=== PATIENT | male | born 1995 | race Caucasian/White ===

== ENCOUNTER 2016-09-15 19:44 | Inpatient (IN) ==
[2016-09-15] MEDS ORDERED: ONDANSETRON 4 MG/2 ML VIAL IV STA (20:30)
[2016-09-15] MEDS ORDERED: MORPHINE 2 MG/1 ML SYRINGE IV STA (20:30)
[2016-09-15] MEDS ORDERED: ONDANSETRON 4 MG/2 ML VIAL ONE (20:30)
[2016-09-15] MEDS ORDERED: MORPHINE 2 MG/1 ML SYRINGE ONE (20:31)
[2016-09-15] MEDS ORDERED: SODIUM CHLORIDE 0.9% 1,000 ML IV STA ×2 (20:40→21:42)
[2016-09-15] MEDS ORDERED: KETOROLAC 30 MG/1 ML VIAL IV STA (20:45)
[2016-09-15] MEDS ORDERED: KETOROLAC 30 MG/1 ML VIAL ONE (20:45)
--- NOTE | 2016-09-15 20:59 | Emergency Department Note ---
IChepe Sierra, am scribing for, and in the presence of, Christiano Vera MD 20: 56. IChuy Andrew, MD, personally performed the services described in this documentation, ascribed by Frances Mo in my presence, and it is both accurate and complete . Arrival - Arrival Chief Complaint: Abdominal / Flank Pain Stated Complaint: chest pain ED Nursing Triage Note: Pt to triage with complaint of abd pain and epigastric pain. States that the pain is worse when takes a deep breath. States that the pain began in the upper abd and that it seems to radiate to his neck. Last normal bm was this morning. Denies any urinary s/s. Denies fever. States that symptoms started this morning. Pt took otc medication with no releif. Mode of Arrival: Wheelchair Limitations: No Limitations Source: Patient, Family - History of Present Illness HPI Narrative: Pt is a 20 y/o male that came to the ED with c/o intermediate abdominal and epigastric pain that began this morning. Father reports pt appeared to be pale and had a syncopal episode CAR SALES REPRESENTATIVE. Parents states pt does have a Hx of syncopal episodes to blood and pain. Pt states he woke up this morning with a "bad LIZ." Pt reports sxs are worse when lying down and pain radiates to his neck. Father states pt has had vomiting once. Pt denies any other medical problems. No other complaints/pain in ED. Onset (ago): hour(s) Consistency: intermittent Severity: moderate Severity scale (1-10): 5 Quality: sharp Allergies/Adverse Reactions: Allergies Allergy/AdvReac Type Severity Reaction Status Date / Time No Known Allergies Allergy Verified 09/15/16 19:45 Home Medications: Home Medications Medication Instructions Recorded Confirmed Type No Known Home Medications [No 09/15/16 09/15/16 History Known Home Medications] Review of System - Review of System 12 point system: reviewed and no additional remarkable complaints except as stated - Review of System Constitutional: Absent: chills, fever Respiratory: Absent: cough Cardiovascular: Present: syncope. Absent: chest pain Gastrointestinal: Present: abdominal pain, vomiting, other (epigastric pain) Musculoskeletal: Absent: arm pain, back pain, leg pain, neck pain Skin: Absent: rash Neurological: Present: headache Psychiatric: Absent: anxiety Medical,Surgical,& Family Hx - Social History Smoking Status: Never smoker Frequency of Alcohol Use: None Type of Drug Use: None Exam Vital Signs: Vital Signs Temperature 98.7 F 09/15/16 23:56 Pulse Rate 87 09/15/16 23:56 Respiratory Rate 18 09/15/16 23:56 Blood Pressure 99/38 09/15/16 23:56 O2 Sat by Pulse Oximetry 99 09/15/16 23:56 - General Exam limited due to: other (exam is limited due to guarding) General appearance: alert, in distress (in distress due to secondary pain) - Head Head exam: Present: atraumatic, normocephalic - Eye Eye exam: Present: PERRL, EOMI - ENT ENT exam: Present: mucous membranes moist. Absent: mucous membranes dry - Neck Neck exam: Present: full ROM. Absent: tenderness - Chest Chest inspection: Present: symmetric chest wall rise. Absent: tenderness - Respiratory Respiratory exam: Present: normal lung sounds bilaterally. Absent: respiratory distress - Cardiovascular Cardiovascular exam: Present: regular rate, normal rhythm, normal heart sounds - Abdominal Exam Abdominal exam: Present: soft, tenderness, guarding (significant guarding) - Extremities Exam Extremities exam: Present: full ROM. Absent: tenderness - Back Exam Back exam: Present: full ROM - Neurological Exam Neurological exam: Present: alert, oriented X3, CN II-XII intact. Absent: motor sensory deficit - Psychiatric Psychiatric exam: Present: normal affect, normal mood - Skin Skin exam: Present: warm, dry Course Course Narrative: Pain medication given as needed. Bolus 2L NS given. CT abdomen with evidence of free fluid of uncertain etiology. Discussed with Dr. Antonio and pt given Zosyn. Lactate 2.6. Admitted with plan for exploratory laparotomy. Results - Labs CBC & BMP: 09/15/16 20:30 09/15/16 20:30 Lab Results: I have reviewed the patients labs Labs: Laboratory Tests 09/15/16 20:30 WBC 24.4 H MCV 86.6 L Neut % (Auto) 88.0 H Lymph % (Auto) 6.4 L Neut # (Auto) 21.5 H [place] # (Auto) 1.2 H Laboratory Tests 09/15/16 09/15/16 20:30 20:30 Segmented Neutrophils 89 H Lymphocytes 6 L Glucose 139 H Total Bilirubin 1.20 H Laboratory Tests 09/15/16 22:00 Blood Type O NEGATIVE Antibody Screen Negative Disposition Clinical Impression: Acute abdomen, Free fluid in pelvis Case discussed with: patient, patient's family Disposition: Still a Patient Condition: Guarded
[2016-09-15 21:09] LABS: Basophils % 0.2 % (0.0-0.8); Hematocrit 42.6 VOL% (42.0-52.0); Hemoglobin 15.1 GM/DL (14.0-18.0); Immature Granulocytes % 0.7 %; Immature Granulocytes Absolute 0.18 #; Lymphocytes # 1.6 10*3/uL (1.4-4.0); Lymphocytes % 6.4 % (21.2-54.2); Mean Corpuscular HGB Conc 35.4 GM/DL (32-36); Mean Corpuscular Hemoglobin 31 PG (27-34); Mean Corpuscular Volume 86.6 FL (87-102); Mean Platelet Volume 11.4 FL (9.6-12.0); Monocytes # 1.2 10*3/uL (0.11-0.8); Monocytes % 4.7 % (1.7-12.7); Neutrophils # 21.5 10*3/uL (1.4-7.4); Platelet Count 328 T/CUMM (130-400); Red Blood Count 4.92 MC/CUMM (3.8-5.5); Red Cell Distribution Width 12.4 % (9.3-17.3); White Blood Count 24.4 T/CUMM (4-12)
[2016-09-15 21:20] LABS: Albumin 4.5 G/DL (3.4-5.0); Bilirubin,Total 1.2 MG/DL (0.2-1.0); Calcium 9.2 MG/DL (8.5-10.1); Osmolality,Calculated 276.5 MOS/KG (273-304); Potassium 3.9 MMOL/L (3.5-5.1); Total Protein 7.8 G/DL (6.4-8.3)
[2016-09-15 21:32] LABS: Lymphocytes 6 % (20-55); Platelet Estimate Normal; Segmented Neutrophils 89 % (50-85); Total Cells Counted 100
[2016-09-15] MEDS ORDERED: PIPERACILLIN/TAZOBACTAM 3,375 MG in SODIUM CHLORIDE 0.9% 100 ML IV STA (21:39)
[2016-09-15] MEDS ORDERED: PIPERACILLIN/TAZOBACTAM 3,375 MG VIAL IV ONE (21:50)
[2016-09-15] MEDS ORDERED: fentaNYL 100 MCG/2 ML VIAL ONE (22:35)
[2016-09-15] MEDS ORDERED: fentaNYL 100 MCG/2 ML VIAL IV STA ×2 (22:37→23:39)
[2016-09-16] MEDS ORDERED: LORazepam 2 MG/1 ML VIAL IV STA (00:10)
[2016-09-16] MEDS ORDERED: ONDANSETRON 4 MG/2 ML VIAL IV STA (00:10)
[2016-09-16] MEDS ORDERED: ONDANSETRON 4 MG/2 ML VIAL ONE ×2 (00:11→01:00)
[2016-09-16] MEDS ORDERED: LORazepam 2 MG/1 ML VIAL ONE (00:12)
--- NOTE | 2016-09-16 00:24 | General Surg History&Physical ---
Assessment and Plan - Time spent with patient Time spent with patient: Greater than 30 minutes (1) Acute abdomen Status: Acute Assessment and plan: Impression: Acute abdomen, sepsis Plan: I reviewed the lab work and the CT scan which was performed with him on his left side. CT report by virtual radiology reviewed. He has an abnormal collection near the lesser sac as well as some free fluid. His problem could be any of a number of things but the acute onset would be typical with a posterior gastric ulcer perforation or perforation of a tumor or fluid collection causing the acute pain. He has been given antibiotics. I discussed the situation with the patient and his mother and father who are with him. I recommended proceeding with emergent laparotomy. I discussed some of the possibilities that could be encountered. We discussed the risks of the procedure including bleeding, infection, damage to surrounding structures, need for further surgery and they are in agreement to proceed. Current Visit: Yes History of Present Illness Chief complaint: Severe abdominal pain History of present illness: Mr. Rapp is a 20 year old male who was in his usual state of good health until today. Patient woke up with a headache this morning which improved throughout the day. He then experienced a sudden onset of pain that he describes as being in the epigastric area. This occurred at about 3:00 while he was showering. He has not had any vomiting. He is not nauseated but only complains of severe abdominal pain. He states the pain has spread throughout his whole abdomen now and is only worsened since its onset. He had some diarrhea last week but states his last several bowel movements have been normal. He has no medical problems. He denies shortness of breath or chest pain. His only complaint is of intense abdominal pain. He has not had any bleeding per rectum or any melena. He denies cough. He has not had any fever. He says he is hot and his father applies a cool rag. Despite feeling hot the patient is shivering profusely. When he arrived at the emergency room his blood pressure was elevated likely due to the pain. After he received his first dose of pain medicine his systolic was noted to be in the 50s and he received 2 L of saline. Blood pressures currently 92/47. His parents state that his complexion is pale compared to what it usually is. Patient does admit to reflux type symptoms that occur fairly regularly. Home Medications Medication Instructions Recorded Confirmed Type No Known Home Medications [No 09/15/16 09/15/16 History Known Home Medications] Allergies Allergy/AdvReac Type Severity Reaction Status Date / Time No Known Allergies Allergy Verified 09/15/16 19:45 Medical,Surgical,& Family Hx - Medical History Medical History: noncontributory (No medical problems) - Social History Smoking Status: Never smoker Frequency of Alcohol Use: None Type of Drug Use: None Exam - Constitutional Vitals: Period Temp Pulse Resp BP Sys/Cowart Pulse Ox Last 24 Hr 98.0 F-98.7 F 87-103 18-20 99-137/38-79 99-99 General appearance: no acute distress (No actual distress but he is shaking and complains of intense pain) - Head Head exam: Present: normocephalic - ENT Mouth exam: Present: normal external inspection - Neck Neck exam: Present: normal inspection - Respiratory Respiratory exam: Present: clear to auscultation bilaterally - Cardiovascular Cardiovascular exam: Present: RRR - GI/Abdominal GI/Abdominal exam: Present: guarding (He is guarding. He does not move off of his left side. He is tender in all 4 quadrants exquisitely. He has obvious peritoneal signs.) - Extremities Exam Extremities exam: Present: normal inspection - Back Exam Back exam: Present: normal inspection - Neurological Exam Neurological exam: Present: alert, oriented X3 Speech: Present: normal - Skin Skin exam: Present: warm 12 point system: reviewed and no additional remarkable complaints except as stated Results - Labs CBC & BMP: 09/15/16 20:30 09/15/16 20:30 Lab Results: I have reviewed the past 24 hour labs (Lactic acid level was 2. 2: 06 liters of fluid.) - Diagnostic Findings Procedure: CT Abdomen and Pelvis: image reviewed by me, report reviewed by me
[2016-09-16] MEDS ORDERED: DEXAMETHASONE 10 MG/1 ML VIAL ONE (01:00)
[2016-09-16] MEDS ORDERED: ROCURONIUM 100 MG/10 ML VIAL IV ONE (01:00)
[2016-09-16] MEDS ORDERED: NEOSTIGMINE 10 MG/10 ML VIAL ONE (01:00)
[2016-09-16] MEDS ORDERED: LIDOCAINE 2% 5 ML VIAL ONE (01:00)
[2016-09-16] MEDS ORDERED: KETOROLAC 30 MG/1 ML VIAL ONE (01:00)
[2016-09-16] MEDS ORDERED: PROPOFOL 200 MG/20 ML VIAL IV ONE (01:00)
[2016-09-16] MEDS ORDERED: SUCCINYLCHOLINE 200 MG/10 ML VIAL ONE (01:00)
[2016-09-16] MEDS ORDERED: GLYCOPYRROLATE 0.4 MG/2 ML VIAL ONE (01:00)
[2016-09-16] MEDS ORDERED: SODIUM CHLORIDE 0.9% 250 ML IV PRN (01:44)
[2016-09-16 02:22] LABS: Apearance,Urine CLOUDY (Clear); Bacteria,Urine Many /HPF (Few); Bilirubin,Urine Negative (Negative); Blood, Urine Negative (Negative); Glucose,Urine (UA) Negative (Negative); Ketones,Urine 5 mg/dL (Negative); Mucus,Urine Many /LPF (Occasional); Nitrite,Urine Negative (Negative); Protein,Urine 30 MG/DL; Urine Color Yellow (Yellow); Urine Specific Gravity > 1.060 (1.001-1.035); Urine Urobilinogen < 2.0 EU/DL (0.2-1.0)
[2016-09-16] MEDS ORDERED: ACETAMINOPHEN 325 MG TABLET PO PRN (03:03)
[2016-09-16] MEDS ORDERED: ONDANSETRON 4 MG/2 ML VIAL IV PRN (03:03)
[2016-09-16] MEDS ORDERED: NALOXONE 0.4 MG/ML VIAL IV PRN (03:06)
[2016-09-16] MEDS ORDERED: MEPERIDINE 25 MG/1 ML VIAL ONE (03:14)
--- NOTE | 2016-09-16 03:17 | Anesthesia Post-Op ---
Anesthesia Post OP - Post Ansesthetic Evaluation Patient seen in post op: Yes Resp: within normal limits CV: within normal limits Mental: within normal limits Temp: within normal limits Lywg-Vq-Fkwhthnqm: within normal limits Nausea and Vomiting: within normal limits Pain: within normal limits
--- NOTE | 2016-09-16 03:20 | Operative Note ---
Date of procedure: 09/16/16 Pre-op diagnosis: Acute abdomen Post-op diagnosis: same (Hemoperitoneum) Procedure: Procedure performed: Exploratory laparotomy Procedure in detail: After informed consent was obtained, patient was taken operating suite and laid supine on the operating table. After general anesthesia was induced Elias catheter placed and the abdomen was prepped and draped in usual sterile fashion. After procedural pause midline laparotomy incision was made and dissection carried down through skin and soft tissue. Fascia was opened and the abdominal cavity was entered. There was fresh blood throughout the abdominal cavity but mostly concentrated on the left. This was all suctioned. A total of approximately a liter of bloody fluid was evacuated. Then identified anterior surface of the stomach and inspected it. There was no abnormality. Liver and spleen were also inspected and found no laceration. The lesser sac was then opened and a large clot of about 150 cc was removed. I inspected the posterior wall of the stomach found no abnormality. Pancreas appeared normal. There were no bleeding vessels. Next the colon was inspected from the ileocecal valve down to the rectum and there was no abnormality. Right colon was mobilized along the line of Toldt. The duodenum identified and a Sonia maneuver performed. I inspected the duodenum and found no active bleeding or any perforation. Small bowel was run from the ligament of Treitz to the ileocecal valve. It was decompressed and appeared normal. No perforation or any active bleeding identified. Gallbladder appeared normal. Appendix appeared normal. Bladder was decompressed and appeared normal. The retroperitoneum was inspected and all zones and there was no hematoma. The abdomen was thoroughly irrigated and suctioned with 5 L of fluid. Fluid remained clear. There was no further active bleeding identified. I again inspected the spleen liver stomach small bowel and colon and again found nothing abnormal. There was no bloody fluid accumulating in the lesser sac. I inspected this area again it appeared normal. With no evidence of active bleeding I elected to place a abdominal VAC and plan for second look laparotomy. The abdominal sheet was placed in the abdomen. Foam and sticky gauze were then placed and the VAC was attached with good seal. There was good hemostasis and the patient remained hemodynamically stable throughout the procedure. He was extubated and taken to the recovery room in stable condition. All lap and needle counts were correct at the end of the case. Anesthesia: GETA Surgeon / Physician: Darío Antonio Estimated blood loss: other (10 cc active blood loss, approximately 1 L of blood evacuated) Specimens: none sent Condition: stable Disposition: PACU Results - Labs CBC & BMP: 09/15/16 20:30 09/15/16 20:30 Discharge Plan - Discharge Data Disposition: Still a Patient - Discharge Medications No Action No Known Home Medications [No Known Home Medications] - Follow Up or Referral - Forms/Instructions
[2016-09-16] MEDS ORDERED: SEVOFLURANE 1 UNIT/15 MINUTE INH ONE (03:24)
[2016-09-16] MEDS ORDERED: MIDAZOLAM 2 MG/2 ML VIAL ONE (03:24)
[2016-09-16] MEDS ORDERED: fentaNYL 100 MCG/2 ML VIAL ONE (03:24)
[2016-09-16] MEDS ORDERED: ACETAMINOPHEN 1,000 MG/100 ML VIAL IV ONE (03:24)
[2016-09-16] MEDS ORDERED: LACTATED RINGERS 2,000 ML IV ONE (03:24)
[2016-09-16] MEDS ORDERED: MEPERIDINE 25 MG/1 ML VIAL IV STA (03:27)
[2016-09-16] MEDS: HYDROmorphone PCA 30 MG/30 ML SYRINGE IV SCH (03:37)
[2016-09-16] MEDS ORDERED: HYDROmorphone PCA 30 MG/30 ML SYRINGE IV ONE (03:37)
[2016-09-16 04:03] LABS: Basophils % 0.1 % (0.0-0.8); Hematocrit 32.3 VOL% (42.0-52.0); Hemoglobin 11.2 GM/DL (14.0-18.0); Immature Granulocytes % 0.6 %; Immature Granulocytes Absolute 0.12 #; Lymphocytes % 4.6 % (21.2-54.2); Mean Corpuscular HGB Conc 34.7 GM/DL (32-36); Mean Corpuscular Hemoglobin 30 PG (27-34); Mean Corpuscular Volume 87.8 FL (87-102); Mean Platelet Volume 11.3 FL (9.6-12.0); Monocytes # 0.8 10*3/uL (0.11-0.8); Monocytes % 3.6 % (1.7-12.7); Neutrophils # 19.4 10*3/uL (1.4-7.4); Neutrophils % 91.1 % (38.7-73.9); Platelet Count 242 T/CUMM (130-400); Red Blood Count 3.68 MC/CUMM (3.8-5.5); Red Cell Distribution Width 12.5 % (9.3-17.3); White Blood Count 21.3 T/CUMM (4-12)
[2016-09-16 04:14] LABS: Fibrinogen Quant Value 149 MG% (200-400); INR 1.1; PT Patient Result 12.1 SECS; Partial Thromboplastin Time 24.2 SECS (0-40)
[2016-09-16] MEDS: LACTATED RINGERS 1,000 ML IV SCH ×3 (04:19→17:23)
[2016-09-16 04:22] LABS: Calcium 7.4 MG/DL (8.5-10.1); Osmolality,Calculated 283.1 MOS/KG (273-304); Potassium 4.3 MMOL/L (3.5-5.1)
[2016-09-16 05:07] LABS: Band Neutrophils 3 % (0-10); Lymphocytes 3 % (20-55); Platelet Estimate Normal; Segmented Neutrophils 90 % (50-85); Total Cells Counted 100
[2016-09-16] MEDS: KETOROLAC 15 MG/1 ML VIAL IV SCH ×4 (06:53→23:51)
--- NOTE | 2016-09-16 08:30 | CT Report ---
CT abdomen pelvis Indication: Abdominal pain Comparison: None available Technique: Axial CT imaging of the abdomen and pelvis is performed with intravenous contrast. Contrast dose is 100 cc of Omnipaque 350. Findings: Cardiac and lung bases are within normal limits. CT abdomen: Small amount perisplenic fluid with intermediate density is seen, extends into the left side of the abdomen and into the pelvis. The bowel in the left side of the abdomen is slightly prominent with some edema in the mesentery. Intermediate density fluid is present in the lesser sac. This is largest pocket and measures 8.0 x 8.2 x 6.9 cm. The liver spleen pancreas and adrenal glands are normal in size and enhancement. No evidence of focal lesion is demonstrated in these solid organs. Kidneys are normal in size and enhancement. No evidence of hydronephrosis or nephrolithiasis is seen. The bowel caliber is normal and no wall thickening or adjacent inflammatory change is seen. No evidence of free fluid or free air is present. Appendix appears normal. CT pelvis: Moderate intermediate density fluid is present within the pelvis. The pelvic bowel appears within normal limits. Bladder shows no evidence of abnormality. The pelvic organs show no evidence of abnormality Impression: Perisplenic, lesser sac, left abdominal and pelvic ascites with some intermediate density. There is slight prominence of the left side small bowel with mesenteric stranding, could represent enteritis. Other rare conditions causes of mesenteric increased density cannot be excluded. No other acute findings seen. This CT exam was performed using one or more the following dose reduction techniques: Automated exposure control, adjustment of the MA and/or KV according to patient size, or use of iterative reconstruction technique. PROCEDURE INTERPRETED AT [facility] DEPARTMENT OF RADIOLOGY Final Report Signed by: Dr. Mk De La Rosa
[2016-09-16] MEDS: PANTOPRAZOLE 40 MG TABLET PO SCH (10:00)
[2016-09-16 10:10] LABS: Hematocrit 30.3 VOL% (42.0-52.0); Hemoglobin 10.6 GM/DL (14.0-18.0)
--- NOTE | 2016-09-16 14:08 | CT Report ---
CT angiogram abdomen pelvis Indication: Post laparotomy, abscess Comparison: 15 Sep 2016 Technique: Axial CT imaging of the abdomen and pelvis is performed with intravenous contrast. Contrast dose is 100 cc of Omnipaque 350. Three-dimensional computer reconstructions of the arterial system are generated. No oral contrast was used. Findings: Cardiac and lung bases are within normal limits CT abdomen: The liver spleen pancreas and adrenal glands are normal in size and enhancement. No evidence of focal lesion is demonstrated in these solid organs. Contrast remains in the gallbladder from recent CT procedure. Kidneys are normal in size and enhancement. No evidence of hydronephrosis or nephrolithiasis is seen. Interval laparotomy has been performed and there is free air present throughout the abdomen and diminished amount of free fluid when compared to previous study. Midline laparotomy defect that remains open. Bowel caliber is normal and no wall thickening or adjacent inflammatory change is seen. No evidence of free fluid or free air is present. Aortic caliber is normal and no evidence of aneurysm or other aortic abnormality is identified. CT pelvis: The pelvic bowel appears within normal limits. Elias catheter and air is present within the bladder. No other bladder abnormality is seen.. The pelvic organs show no evidence of abnormality. Impression: Interval laparotomy with midline abdominal incision remaining open. Free fluid on the previous study is mostly removed with postoperative peritoneal air present. No focal abscess or other distinct abnormality seen. This CT exam was performed using one or more the following dose reduction techniques: Automated exposure control, adjustment of the MA and/or KV according to patient size, or use of iterative reconstruction technique. PROCEDURE INTERPRETED AT [facility] DEPARTMENT OF RADIOLOGY Final Report Signed by: Dr. Mk De La Rosa
--- NOTE | 2016-09-16 15:04 | Event Note ---
Status post laparotomy. Patient has done well postoperatively. He is afebrile his vital signs are stable. His pain he says is much better. Wound VAC has had minimal output. It is serosanguineous. There is no evidence of ongoing bleeding. Hemoglobin has remained relatively stable. White blood cell count down a bit from yesterday. Probably reactive as I have not seen any source of inflammation or infection. CTA was performed today to look for any IV malformations and none were seen. Plan for reexploration tomorrow and possible closure if no further bleeding identified. Discussed this with the patient and family and they are in agreement to proceed.
[2016-09-16] MEDS: LORazepam 2 MG/1 ML VIAL IV PRN (21:52)
[2016-09-17] MEDS: LACTATED RINGERS 1,000 ML IV SCH ×4 (01:24→20:25)
[2016-09-17] MEDS: HYDROmorphone PCA 30 MG/30 ML SYRINGE IV SCH ×2 (03:14→10:15)
[2016-09-17] MEDS: KETOROLAC 15 MG/1 ML VIAL IV SCH ×4 (05:55→22:49)
[2016-09-17] MEDS ORDERED: LORazepam 1 MG TABLET PO ONE (06:00)
[2016-09-17 06:04] LABS: Basophils % 0.1 % (0.0-0.8); Eosinophils % 0.2 % (0.00-10.9); Hematocrit 27.7 VOL% (42.0-52.0); Hemoglobin 9.5 GM/DL (14.0-18.0); Immature Granulocytes % 0.4 %; Immature Granulocytes Absolute 0.05 #; Lymphocytes # 1.9 10*3/uL (1.4-4.0); Lymphocytes % 16.4 % (21.2-54.2); Mean Corpuscular HGB Conc 34.3 GM/DL (32-36); Mean Corpuscular Hemoglobin 30 PG (27-34); Mean Corpuscular Volume 88.8 FL (87-102); Mean Platelet Volume 11.2 FL (9.6-12.0); Monocytes % 8.2 % (1.7-12.7); Neutrophils # 8.7 10*3/uL (1.4-7.4); Neutrophils % 74.7 % (38.7-73.9); Platelet Count 180 T/CUMM (130-400); Red Blood Count 3.12 MC/CUMM (3.8-5.5); Red Cell Distribution Width 12.7 % (9.3-17.3); White Blood Count 11.6 T/CUMM (4-12)
[2016-09-17] MEDS ORDERED: PROPOFOL 200 MG/20 ML VIAL IV ONE (07:00)
[2016-09-17] MEDS ORDERED: KETOROLAC 30 MG/1 ML VIAL ONE (07:00)
[2016-09-17] MEDS ORDERED: ROCURONIUM 100 MG/10 ML VIAL IV ONE (07:00)
[2016-09-17] MEDS ORDERED: LIDOCAINE 2% 5 ML VIAL ONE (07:00)
[2016-09-17] MEDS ORDERED: DEXAMETHASONE 10 MG/1 ML VIAL ONE (07:00)
[2016-09-17] MEDS ORDERED: GLYCOPYRROLATE 0.4 MG/2 ML VIAL ONE (07:00)
[2016-09-17] MEDS ORDERED: NEOSTIGMINE 10 MG/10 ML VIAL ONE (07:00)
[2016-09-17] MEDS ORDERED: ONDANSETRON 4 MG/2 ML VIAL ONE (07:00)
--- NOTE | 2016-09-17 08:14 | Operative Note ---
Date of procedure: 09/17/16 Procedure: Dr. Jaramillo energy assistant note on Dainel Ennis. Procedure patient had second look laparotomy for spontaneous hemoperitoneum. Dr. Antonio primary surgeon assisted in examining the abdomen thoroughly there was no evidence of continued hemoperitoneum nor because of the primary hemorrhage. Abdomen was examined irrigated and closed. Surgeon / Physician: Parviz Jaramillo Results - Labs CBC & BMP: 09/17/16 05:36 09/16/16 03:57 Discharge Plan - Discharge Medications No Action No Known Home Medications [No Known Home Medications] - Follow Up or Referral - Forms/Instructions
[2016-09-17] MEDS ORDERED: fentaNYL 100 MCG/2 ML VIAL ONE ×2 (08:37→08:38)
[2016-09-17] MEDS ORDERED: SEVOFLURANE 1 UNIT/15 MINUTE INH ONE (08:37)
[2016-09-17] MEDS ORDERED: MIDAZOLAM 2 MG/2 ML VIAL ONE (08:37)
[2016-09-17] MEDS ORDERED: ACETAMINOPHEN 1,000 MG/100 ML VIAL IV ONE (08:38)
[2016-09-17] MEDS ORDERED: LACTATED RINGERS 2,000 ML IV ONE (08:38)
--- NOTE | 2016-09-17 11:56 | Operative Note ---
Date of procedure: 09/17/16 Pre-op diagnosis: Spontaneous hemoperitoneum, open abdomen Post-op diagnosis: same Procedure: Procedure performed: Reexploration of recent laparotomy #2 closure of the abdomen Procedure in detail: After informed consent was obtained patient was taken operating suite placed upon the operating table. After general anesthesia was induced the wound VAC removed and the abdomen prepped and draped in usual sterile fashion. After procedural pause the inner drape was removed and the abdominal cavity examined. There was no blood or clot within the abdomen. I again examined the stomach anteriorly as well as posteriorly from the lesser sac and it appeared normal. Liver spleen small bowel: Gallbladder and retroperitoneum were all examined and there was no hematoma, fresh blood, or any source of previous bleed identified. The abdomen was thoroughly irrigated and suctioned. Midline fascia was closed with #1 running looped PDS. Skin closed with agustina. Sterile dressings applied. Patient was extubated and taken recovery in stable condition. All lap and needle counts correct at the end of the case. Anesthesia: GAYLEA Surgeon / Physician: Darío Antonio Estimated blood loss: none Specimens: none sent Condition: stable Disposition: PACU Results - Labs CBC & BMP: 09/17/16 05:36 09/16/16 03:57 Discharge Plan - Discharge Medications No Action No Known Home Medications [No Known Home Medications] - Follow Up or Referral - Forms/Instructions
[2016-09-17] MEDS: PANTOPRAZOLE 40 MG TABLET PO SCH (12:17)
--- NOTE | 2016-09-17 12:37 | Anesthesia Post-Op ---
Anesthesia Post OP - Post Ansesthetic Evaluation Patient seen in post op: Yes Resp: within normal limits CV: within normal limits Mental: within normal limits Temp: within normal limits Addn-Zs-Iagnbjtfj: within normal limits Nausea and Vomiting: within normal limits Pain: within normal limits
[2016-09-18] MEDS: LACTATED RINGERS 1,000 ML IV SCH ×3 (03:11→22:05)
[2016-09-18] MEDS: HYDROmorphone PCA 30 MG/30 ML SYRINGE IV SCH (04:10)
[2016-09-18] MEDS: KETOROLAC 15 MG/1 ML VIAL IV SCH ×4 (04:23→22:00)
[2016-09-18 05:15] LABS: Basophils % 0.1 % (0.0-0.8); Eosinophils % 0.1 % (0.00-10.9); Hematocrit 28.2 VOL% (42.0-52.0); Hemoglobin 9.3 GM/DL (14.0-18.0); Immature Granulocytes % 0.4 %; Immature Granulocytes Absolute 0.04 #; Lymphocytes # 1.4 10*3/uL (1.4-4.0); Lymphocytes % 13.3 % (21.2-54.2); Mean Corpuscular Hemoglobin 30 PG (27-34); Mean Corpuscular Volume 91.6 FL (87-102); Mean Platelet Volume 11.4 FL (9.6-12.0); Monocytes % 9.7 % (1.7-12.7); Neutrophils % 76.4 % (38.7-73.9); Platelet Count 193 T/CUMM (130-400); Red Blood Count 3.08 MC/CUMM (3.8-5.5); Red Cell Distribution Width 12.6 % (9.3-17.3); White Blood Count 10.5 T/CUMM (4-12)
[2016-09-18 05:51] LABS: Calcium 8.3 MG/DL (8.5-10.1); Osmolality,Calculated 279.1 MOS/KG (273-304); Potassium 3.8 MMOL/L (3.5-5.1)
[2016-09-18] MEDS: PANTOPRAZOLE 40 MG TABLET PO SCH (09:04)
[2016-09-18] MEDS ORDERED: MORPHINE 2 MG/1 ML SYRINGE IV PRN (10:35)
--- NOTE | 2016-09-18 14:45 | Event Note ---
S: POD # 1/2 s/p exploratory laparotomy with secondary examination and closure for hemoperitoneum without clear source identification. The patient is sitting up in the bed with his pain adequately controlled. He reports he has been on the bed and ambulated in the chair. He has no nausea or vomiting although he has a diminished appetite. He is voiding without difficulty but no bowel movement yet. Objective: Vitals are stable HEENT atraumatic, normocephalic. No conjunctival pallor. Chest: Clear to auscultation bilaterally Heart: Regular rate and rhythm Abdomen: Surgical dressing is clean, dry and intact. Abdomen soft and appropriately tender postoperatively. Bowel sounds are present. Extremities: Calves are soft and nontender without pedal edema Labs Hemoglobin 9.3 hematocrit 28.2 9.3/hematocrit 20.2 BMP unremarkable Assessment and plan Patient is postop day #1/2 status post exploratory laparotomy for hemoperitoneum without clear source edification. He is progressing well so far. With low appetite we will continue liquids diet and hopefully advance tomorrow. 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 Continue to monitor bowel function. Repeat labs in the morning. DVT prophylaxis: Mechanical orders in place. Patient is high risk for bleeding we will hold on chemoprophylaxis. GI prophylaxis: PPI daily.
[2016-09-18] MEDS: LORazepam 2 MG/1 ML VIAL IV PRN (21:58)
[2016-09-19 03:58] LABS: Basophils % 0.3 % (0.0-0.8); Eosinophils # 0.1 10*3/uL (0.0-0.87); Eosinophils % 1.2 % (0.00-10.9); Hematocrit 26.6 VOL% (42.0-52.0); Immature Granulocytes % 0.3 %; Immature Granulocytes Absolute 0.02 #; Lymphocytes % 33.3 % (21.2-54.2); Mean Corpuscular HGB Conc 33.8 GM/DL (32-36); Mean Corpuscular Hemoglobin 31 PG (27-34); Mean Corpuscular Volume 91.4 FL (87-102); Mean Platelet Volume 10.7 FL (9.6-12.0); Monocytes # 0.6 10*3/uL (0.11-0.8); Monocytes % 10.4 % (1.7-12.7); Neutrophils # 3.2 10*3/uL (1.4-7.4); Neutrophils % 54.5 % (38.7-73.9); Platelet Count 166 T/CUMM (130-400); Red Blood Count 2.91 MC/CUMM (3.8-5.5); Red Cell Distribution Width 12.5 % (9.3-17.3); White Blood Count 5.9 T/CUMM (4-12)
[2016-09-19] MEDS: KETOROLAC 15 MG/1 ML VIAL IV SCH (05:47)
[2016-09-19] MEDS: PANTOPRAZOLE 40 MG TABLET PO SCH (08:42)
--- NOTE | 2016-09-19 11:04 | Event Note ---
S: POD # 2/3 s/p exploratory laparotomy with secondary examination and closure for hemoperitoneum without clear source identification. The patient is mobilizing in room with his pain adequately controlled. Still diminished appetite but tolerating more oral intake without N/V. Voiding without difficulty. +flatus. Objective: Vitals are stable HEENT atraumatic, normocephalic. No conjunctival pallor. Chest: Clear to auscultation bilaterally Heart: Regular rate and rhythm Abdomen: Surgical incision is clean, dry and intact with agustina intact. Abdomen soft and appropriately tender postoperatively. Bowel sounds are present. Extremities: Calves are soft and nontender without pedal edema Labs Hemoglobin 9.0/Hct 31..6 Assessment and plan Patient is postop day #2/3 status post exploratory laparotomy for hemoperitoneum without clear source edification. He is progressing well so far. With low appetite we will continue advance diet as tolerated. Encourage mobility. Continue pain mgmt. Continue to monitor bowel function. Repeat labs in the morning. Anemia - blood loss with continued slight drop. Pt with apparent spontaneous GI bleed. Will c/s hematology for evaluation and recs for any blood dyscrasia - appreciate input. DVT prophylaxis: Mechanical orders in place. Patient is high risk for bleeding we will hold on chemoprophylaxis. GI prophylaxis: PPI daily.
[2016-09-19 11:10] VITALS: BP 140/74
--- NOTE | 2016-09-19 12:53 | Discharge Summary ---
Hospital Course - Hospital Course Hospital Course: The patient is 20 y/o male who underwent exploratory laparotomy with follow up exam and wound closure for hemoperitoneum. Identification of source unclear. The pt tolerated the procedures without complication and progressed well p/o. At time of discharge, he was tolerating oral intake and activity as well as voiding and passing flatus without difficulty. He was discharged home in good condition per Dr. Antonio with f/u scheduled with Drs. Antonio and Sidra - hematology. Diagnosis - Discharge Diagnosis (1) Hemoperitoneum (nontraumatic) Status: Acute Specialty Discharge - Follow Up or Referrals Follow up with: Catalino Massey MD [Physician] - Discharge Plan - Discharge Data Disposition: Disch To Home/Self Care Condition at Discharge: Stable Discharge Diet: advance to your usual diet Activity: no lifting (> 10 lb) Hygiene: may shower Driving: not until seen by doctor Contact your physician if you experience:: fever over 101, Difficulty voiding, Redness or swelling, Nausea/Vomiting, Shortness of breath, Bleeding, pain uncontrolled by pain medications Wound / Dressing Care Instructions: Keep wound clean, dry and covered. - Discharge Medications New HYDROcodone/ACETAMIN 7.5-325 [[place] 7.5-325] 1 tablet PO Q4H PRN #30 tablet PRN Reason: Pain Moderate To Severe (4-10) - Follow Up or Referral Follow Up: Darío Antonio MD [Physician] - 1 Week Catalino Massey MD [Physician] - (dr. massey office will call you with your appointment. please call office if you have any questions or concerns. [phone]. thank you.) - Forms/Instructions Instructions: Exploratory Laparotomy (DC) Exam - Constitutional Vitals: Period Temp Pulse Resp BP Sys/[place] Pulse Ox Last 24 Hr 97.5 F-98.3 F 73-88 16-19 120-153/67-74 80-100 Discharge Results Procedures and tests throughout hospitalization: 1. Exploratory laparotomy x 2 with wound closure Labs on day of discharge: Labs from last 24 hours 09/19/16 03:48 WBC 5.9 D RBC 2.91 L Hgb 9.0 L Hct 26.6 L MCV 91.4 MCH 31 MCHC 33.8 RDW 12.5 Plt Count 166 MPV 10.7 Neut % (Auto) 54.5 Lymph % (Auto) 33.3 [place] % (Auto) 10.4 Eos % (Auto) 1.2 Baso % (Auto) 0.3 Neut # (Auto) 3.2 Lymph # (Auto) 2.0 [place] # (Auto) 0.6 Eos # (Auto) 0.1 Baso # (Auto) 0.0 Immature Gran % 0.3 Nucleated RBC % 0.0 Immature Gran # 0.02 Nucleated RBCs # 0.00 - Imaging and Cardiology Procedure: CT Abdomen and Pelvis: image reviewed by me, report reviewed by me, CT: image reviewed by me, report reviewed by me (CTA abd/pelvis) DS: Provider Date of admission: 09/16/16 03:03 Primary care physician: Abraham Goss Jr., Attending physician on admission: Darío Antonio MD Consults: 09/16/16 04:46 Consult to Dietitian [CONS] Routine Reason for Dietitian: Dietary Consult 09/19/16 09:14 Consult to Physician [CONS] Routine Comment: GI bleed - spontaneous Consulting Provider: Catalino Massey Consulting Provider Notified: Yes When should Consulting Provider be notified: Now Person Notified: nazanin kyle Date Notified: 09/19/16 Time Notified: 09:36 Discharging clinician: Traci Lopez PA-C
== END 2016-09-19 14:20 | disposition home or self-care (01) | DRG 356 ==
LOC: N.ED 19:44 → N.3E 09-16 03:03
PROVIDERS: ADMIT Surgery; ATTEND Surgery